=== PATIENT | male | born 1965 | race Caucasian/White ===

== ENCOUNTER → 2022-10-05 | Outpatient (CLI) | payer OTHER | END | disposition home or self-care (01) | LOC: PLD 11:45 → LAB SHORT 11:45 | DX: D18.01 Hemangioma of skin and subcutaneous tissue (principal) | CPT/HCPCS: 88305 ==

== ENCOUNTER → 2023-05-31 | Outpatient (CLI) | payer OTHER | LOC: LAB SHORT 08:17 → PLD 08:17 | DX: D48.5 Neoplasm of uncertain behavior of skin (principal) | CPT/HCPCS: 88305 ==